=== PATIENT | male | born 1960 | race Caucasian/White ===

== ENCOUNTER 2017-01-19 19:23 | Outpatient (CLI) | payer BC ==
--- NOTE | 2017-01-19 21:34 | RAD ---
ABDOMEN TWO VIEWS: 01/19/17 HISTORY: Abdominal pain. FINDINGS/IMPRESSION: No free air or differential fluid levels are seen. The bowel gas pattern is unremarkable. There is f ecal material in the colon. No suspicious calcifications are identified. There are degenerative gauthier ges in the spine. POS: [facility]
== END 2017-01-19 19:24 | disposition home or self-care (01) ==
LOC: SCSRAD 19:23
PROVIDERS: ATTEND Family Medicine
DX: R10.9 Unspecified abdominal pain (principal); M47.899 Other spondylosis, site unspecified
CPT/HCPCS: 74020

== ENCOUNTER 2018-11-14 13:34 | Day surgery (SDC) | payer BC ==
[2018-11-13 10:06] VITALS: BMI 31.7
[2018-11-14] MEDS ORDERED: Ketorolac Tromethamine 30 MG/ML VIAL ONE (13:49)
[2018-11-14] MEDS ORDERED: ceFAZolin Sodium (SDC) 2 GM/100 ML BAG ONE (13:49)
[2018-11-14 14:32] LABS: #Basophils 0.1 thou/uL (0.0-0.2); #Eosinphils 0.3 thou/uL (0.0-0.7); #Lymphocytes 2.3 thou/uL (1.20-3.40); #Monocytes 0.6 thou/uL (0.11-0.59); #Neutrophils 3.3 thou/uL (1.40-6.50); %Eosinophils 4.8 % (0.0-10.0); %Lymphocytes 35.5 % (21.0-51.0); %Monocytes 8.5 % (0.0-10.0); %Neutrophils 50.2 % (42.0-75.0); Hemoglobin 15.3 g/dL (14.0-18.0); Mean Corpuscular HGB CONC 34.4 g/dL (32.0-36.0); Mean Corpuscular Hemoglobin 29.3 pg (27.0-31.0); Mean Corpuscular Volume 85.1 fL (78.0-98.0); Mean Platelet Volume 6.5 fL (7.4-10.4); Platelet Count 213 thou/uL (130-400); RBC Distribution Width 11.5 % (11.5-14.5); Red Blood Cell (RBC) Count 5.22 mill/uL (4.70-6.10); White Blood Cell (WBC) Count 6.6 thou/uL (4.8-10.8)
[2018-11-14 14:50] LABS: Anion Gap 12 mmol/L (10-20); BUN (Urea Nitrogen) 14 mg/dL (8.4-25.7); Calc. Creatinine Clearance 134 mL/min (70-130); Calcium 9.6 mg/dL (7.8-10.44); Carbon Dioxide 21 mmol/L (22-29); Chloride 108 mmol/L (98-107); Estimated GFR-MDRD Greater than 90; Glucose 86 mg/dL (70-105); Potassium 3.7 mmol/L (3.5-5.1); Sodium 137 mmol/L (136-145)
[2018-11-14] MEDS ORDERED: Bupivacaine/Epinephrine 0.25% 30 ML VIAL ONE (15:19)
[2018-11-14] MEDS ORDERED: Midazolam HCl 2 mg/2 ml Vial ONE (15:28)
[2018-11-14] MEDS ORDERED: Fentanyl 100 MCG/2 ML VIAL ONE (15:28)
[2018-11-14] MEDS ORDERED: Lidocaine 2% Jelly 5 ML TUBE ONE (15:28)
[2018-11-14] MEDS ORDERED: HYDROmorphone 0.5 MG/0.5 ML SYRINGE ONE (17:50)
[2018-11-14] MEDS ORDERED: HYDROcodone/Acetaminophen 5/325 mg Tablet ONE (21:04)
--- NOTE | 2018-11-15 10:16 | OP ---
DATE OF PROCEDURE: 11/14/2018 PREOPERATIVE DIAGNOSIS: Bilateral inguinal hernia. POSTOPERATIVE DIAGNOSIS: Bilateral inguinal hernia, indirect. OPERATION PERFORMED: Robotic repair of bilateral inguinal hernia using large 3DMax mesh patch. ANESTHESIA: General endotracheal. INDICATIONS: The patient is a 58-year-old white male. He recently had a CT scan, which demonstrated a large left inguinal hernia with bowel protruding through this. He was also recognized to have a fat containing right inguinal hernia. He is taken to the operating room at this time for repair of both. DESCRIPTION OF OPERATION: Informed consent was obtained. The patient was taken to the operating room, where general endotracheal anesthesia was obtained with the patient in supine position. Castro catheter was placed, abdomen was prepped with ChloraPrep and draped in sterile fashion. Local anesthetic was infiltrated using 0.25% Marcaine with epinephrine, and a 12-mm supraumbilical incision was created through which a Veress needle was passed into the peritoneal cavity. Pneumoperitoneum was established using carbon dioxide up to pressure of 15 mmHg. A 12-mm balloon tipped port was passed into the abdominal cavity, and camera was passed through this port. Under direct vision, two additional 8 mm robotic ports were placed on either side of midline at the supraumbilical level. Attention was turned to the pelvis. He was recognized to have a large indirect left inguinal hernia. There was minimal evidence on initial scanning of the hernia on the right side. The robot was docked to the ports and the camera, and the operation was continued from the robotic console. Attention was turned first to the left side. A transverse peritoneal incision was created several centimeters superior to the visible hernia defect. Dissection was carried inferiorly in the preperitoneal plane. Laterally, dissection was carried out to identify the iliopubic tract. Medially, the pubic tubercle and Alhjai ligament were cleared. In the center of the incision, the patient had a large indirect hernia with a large hernia sac protruding through the defect. Meticulous dissection was carried out to mobilize the hernia sac off the cord structures. The hernia sac was widely dissected posteriorly off the underlying cord structures and the vas deferens. Meticulous hemostasis was maintained with electrocautery. When the anatomy was fully dissected, a large 3DMax mesh patch was placed in the preperitoneal space. It was secured medially with a 3-0 Vicryl suture to the pubic tubercle. A second suture was placed to the anterior abdominal wall anterior to the hernia defect. A third suture was placed medial to the epigastric vessels. The tail of the mesh tucked nicely into the peritoneal pocket. The defect was well covered by the mesh. The peritoneum was then closed with a running suture of 3-0 Stratafix. Attention was turned to the right side. A mirror-image incision was created to that on the left, and again dissection was carried inferiorly in a preperitoneal plane. The same structures were dissected and identified. There was a minimal internal herniation such that the peritoneum was dissected off the cord. As I dissected the cord further, there was a large cord lipoma protruding through the internal ring. This was reduced easily and excised. This was later removed through the 12 mm port site. A large 3DMax patch was placed in the preperitoneal pocket and secured with two sutures of 3-0 Vicryl in the usual fashion. The peritoneum was closed with a running suture of 3-0 Stratafix. The area was inspected. Both incisions were well closed, and there was no evidence of any bleeding at any time during the operation. The fascia at the 12-mm port site was closed with 0 Vicryl suture using a GraNee needle. All ports and instruments were removed under direct vision. Pneumoperitoneum was carefully evacuated. A 0.25% Marcaine with epinephrine was infiltrated at each port site. Skin edges were approximated with 4-0 Monocryl subcuticular suture. Dermabond was placed externally. There were no complications. The patient tolerated the procedure well and was taken to recovery room in stable condition. Job ID: [id number]
== END 2018-11-14 21:20 | disposition home or self-care (01) ==
LOC: SDC 13:34
PROVIDERS: ATTEND Specialist
PROC: 0YUA4JZ Supplement Bilateral Inguinal Region with Synthetic Substitute, Percutaneous Endoscopic Approach (ICD-10-PCS; principal; 2018-11-14)
DX: K40.20 Bilateral inguinal hernia, without obstruction or gangrene, not specified as recurrent (principal); D17.6 Benign lipomatous neoplasm of spermatic cord; I10 Essential (primary) hypertension; G47.33 Obstructive sleep apnea (adult) (pediatric); Z99.89 Dependence on other enabling machines and devices; Z88.8 Allergy status to other drugs, medicaments and biological substances; Z79.899 Other long term (current) drug therapy
CPT/HCPCS: 36415; 80048; 85025; C1781; J0131; J0690; J1170; J1885; J2250; J3010